=== PATIENT | male | born 1955 | race Caucasian/White ===

== ENCOUNTER 2020-07-30 07:34 | Day surgery (SDC) | payer MEDICARE, OTHER ==
[~2020-07-30] VITALS: Ht 177.8 cm; Wt 101.1 kg
[~2020-07-30 07:34] MED LIST: BUPIVACAINE LIPOSOME/PF 10ML INFIL ONE; BUPIVACAINE/PF 0.5% ONE; CLINDAMYCIN 150 MG/ML, 6ML ONE; EPINEPHRINE 1 MG/ML, 1ML ONE; LIDOCAINE/PF 1%, 30ML ONE
[2020-07-30] MEDS ORDERED: FENTANYL PF 100 MCG/2ML ONE (08:29)
[2020-07-30] MEDS ORDERED: MIDAZOLAM 1 MG/ML, 2ML ONE (08:30)
[2020-07-30 08:33] VITALS: BP 165/96
[2020-07-30] MEDS ORDERED: BENA1TAB10 PO (08:44)
[2020-07-30] MEDS ORDERED: TYLENOL PO (08:44)
[2020-07-30] MEDS ORDERED: CHLORHEXIDINE 15 ML UDC MM ONE (09:00)
[2020-07-30] MEDS ORDERED: LACTATED RINGERS 1,000 ML IV SCH (09:00)
[2020-07-30] MEDS ORDERED: CHLORHEXIDINE 15 ML UDC ONE (09:03)
[2020-07-30] MEDS ORDERED: hydrALAzine 20 MG/ML, 1ML IV PRN (09:30)
[2020-07-30] MEDS ORDERED: ACETAMINOPHEN 325 MG TABLET PO PRN (09:30)
[2020-07-30] MEDS ORDERED: MEPERIDINE/PF 25MG/0.5ML IVPush PRN (09:30)
[2020-07-30] MEDS ORDERED: HYDROmorphone 1 MG/ML, 1ML INJ IVPush PRN (09:30)
[2020-07-30] MEDS ORDERED: LORazepam 2 MG/ML, 1ML IVPush PRN (09:30)
[2020-07-30] MEDS ORDERED: HYDROcodone/APAP 7.5-325MG/15ML UDC PO PRN (09:30)
[2020-07-30] MEDS ORDERED: PROMETHAZINE 25 MG/ML, 1ML IVPush PRN (09:30)
[2020-07-30] MEDS ORDERED: FENTANYL PF 100 MCG/2ML IV PRN (09:30)
[2020-07-30] MEDS ORDERED: ALBUTEROL SULFATE 2.5 MG/3 ML NPPB PRN (09:30)
[2020-07-30] MEDS ORDERED: LABETALOL 5MG/ML, 20ML IV PRN (09:30)
[2020-07-30] MEDS ORDERED: ACETAMINOPHEN 500 MG TABLET PO ONE (10:00)
[2020-07-30] MEDS ORDERED: LIDOCAINE-MPF 2% ,5ML ONE (10:10)
[2020-07-30] MEDS ORDERED: KETOROLAC 30 MG/1 ML ONE (10:10)
[2020-07-30] MEDS ORDERED: DEXAMETHASONE 4 MG/ML, 1ML ONE (10:10)
[2020-07-30] MEDS ORDERED: PROPOFOL 10 MG/ML, 20ML ONE (11:25)
[2020-07-30] MEDS ORDERED: BUPIVACAINE/PF 0.5% ONE (11:25)
[2020-07-30] MEDS ORDERED: CEFAZOLIN 1,000 MG ONE (11:25)
[2020-07-30] MEDS ORDERED: NEOSTIGMINE 1 MG/ML, 10ML ONE (11:25)
[2020-07-30] MEDS ORDERED: GLYCOPYRROLATE 0.2MG/1ML, 5ML ONE (11:25)
[2020-07-30] MEDS ORDERED: ONDANSETRON 2MG/ML, 2ML ONE (11:25)
[2020-07-30] MEDS ORDERED: ROCURONIUM 10MG/ML,5ML ONE (11:25)
[2020-07-30] MEDS ORDERED: HYDROCHLOROTHIAZIDE 12.5 MG CAPSULE PO SCH (21:00)
[2020-07-30] MEDS ORDERED: BENAZEPRIL 20 MG TABLET PO SCH (21:00)
== END 2020-07-30 13:55 | disposition home or self-care (01) ==
LOC: OUT 07:34
PROVIDERS: ATTEND Orthopaedic Surgery
DX: M25.511 Pain in right shoulder (principal); M75.111 Incomplete rotator cuff tear or rupture of right shoulder, not specified as traumatic; M65.811 Other synovitis and tenosynovitis, right shoulder; M24.111 Other articular cartilage disorders, right shoulder; M75.51 Bursitis of right shoulder; I10 Essential (primary) hypertension; Z88.8 Allergy status to other drugs, medicaments and biological substances; Z20.828 Contact with and (suspected) exposure to other viral communicable diseases; Z79.899 Other long term (current) drug therapy; Z72.89 Other problems related to lifestyle; Z87.891 Personal history of nicotine dependence; Z98.890 Other specified postprocedural states
CPT/HCPCS: 29822; 29826; 29827; 64415; 93005; C1713; J0171; J0690; J2250; J2405; J2704; J2710; J3010; J7120; U0003; J1100; J1885